=== PATIENT | female | born 1985 | race Hispanic/Latino ===

== ENCOUNTER 2017-09-07 14:37 | Inpatient (IN) | payer BC, SELFPAY ==
[2017-09-07] MEDS ORDERED: Ziprasidone 20 MG VIAL ONE ×2 (14:52→16:50)
[2017-09-07] MEDS ORDERED: Sterile Water 10 ML ONE ×2 (14:52→16:50)
[2017-09-07 15:51] LABS: #Basophils 0.1 thou/uL (0.0-0.2); #Lymphocytes 1.6 thou/uL (1.20-3.40); #Monocytes 0.3 thou/uL (0.11-0.59); #Neutrophils 1.2 thou/uL (1.40-6.50); %Basophils 1.6 % (0.0-1.0); %Eosinophils 1.2 % (0.0-10.0); %Lymphocytes 49.7 % (21.0-51.0); %Monocytes 9.9 % (0.0-10.0); %Neutrophils 37.7 % (42.0-75.0); Hemoglobin 11.8 g/dL (12.0-16.0); Mean Corpuscular HGB CONC 31.3 g/dL (32.0-36.0); Mean Corpuscular Hemoglobin 25.3 pg (27.0-31.0); Mean Corpuscular Volume 80.9 fl (81.0-99.0); Platelet Count 213 thou/uL (130-400); RBC Distribution Width 13.8 % (11.5-14.5); Red Blood Cell (RBC) Count 4.66 mill/uL (4.20-5.40); White Blood Cell (WBC) Count 3.3 thou/uL (4.8-10.8)
[2017-09-07 16:14] LABS: ALT (SGPT) 13 U/L (8-55); AST (SGOT) 17 U/L (5-34); Albumin 4.6 g/dL (3.5-5.0); Alcohol Less than 10 mg/dL (Less than 10); Alkaline Phosphatase 56 U/L (40-150); Anion Gap 15 mmol/L (10-20); BUN (Urea Nitrogen) 13 mg/dL (7.0-18.7); Bilirubin, Total 0.3 mg/dL (0.2-1.2); CK (CPK) 171 U/L (29-168); Calc. Creatinine Clearance 0 mL/min (70-130); Calcium 9.1 mg/dL (7.8-10.44); Carbon Dioxide 19 mmol/L (22-29); Chloride 110 mmol/L (98-107); Estimated GFR-MDRD 82; Globulin 2.9 g/dL (2.4-3.5); Glucose 71 mg/dL (70-105); Potassium 3.3 mmol/L (3.5-5.1); Protein, Total 7.5 g/dL (6.0-8.3); Salicylate Less than 8.0 mg/dL (15.0-30.0); Sodium 141 mmol/L (136-145)
[2017-09-07 16:33] LABS: Bilirubin Negative (Negative); Blood, Urine Negative (Negative); Clarity CLEAR (Clear); Glucose, Urine (Dipstick) Negative (Negative); Leukocyte Negative (Negative); Nitrite Negative (Negative); Protein, Urine (Dipstick) Trace mg/dL (Neg-Trace); Urobilinogen 0.2 mg/dL (0.2-1.0)
[2017-09-07 16:37] LABS: Pregnancy Test - Urine (BHCG) Negative (Negative); Pregu Control Background? CLEAR/WHITE (CLR/WHITE); Pregu Control Bar Appear? YES (CONTROL BAR); Specific Gravity 1.043 (1.002-1.036); Specific Gravity, Urine 1.043 (1.002-1.036)
[2017-09-07 16:38] LABS: Medtox Reader # READER 1
[2017-09-07 16:39] LABS: Amphetamine Not Detected (NotDetected); Barbiturates Screen Detected (NotDetected); Benzodiazepine Screen Not Detected (NotDetected); Cocaine Metabolite Screen Not Detected (NotDetected); Medtox Control Line Valid? VALID (VALID); Methadone Not Detected (NotDetected); Methamphetamine Not Detected (NotDetected); Opiate Screen Not Detected (NotDetected); Oxycodone Screen Not Detected (NotDetected); Phencyclidine (PCP) Not Detected (NotDetected); THC/Cannabinoid Screen Not Detected (NotDetected); Tricyclic Screen Not Detected (NotDetected)
[2017-09-07] MEDS ORDERED: Lorazepam 2 MG/ML VIAL SLOW IVP PRN (17:13)
[2017-09-07] MEDS ORDERED: ACETYLCYSTEINE IVPB ONE ×4 (17:15)
[2017-09-07] MEDS ORDERED: WATER IVPB SCH ×2 (17:15)
[2017-09-07] MEDS ORDERED: DEXTROSE 5% IVPB SCH ×2 (17:15)
[2017-09-07] MEDS ORDERED: DEXTROSE 5% IVPB ONE ×4 (17:15)
[2017-09-07] MEDS ORDERED: ACETYLCYSTEINE IVPB SCH ×2 (17:15)
[2017-09-07] MEDS ORDERED: WATER IVPB ONE ×4 (17:15)
[2017-09-07] MEDS ORDERED: Morphine 4 MG/ML Carpuject SLOW IVP PRN (17:29)
[2017-09-07] MEDS ORDERED: Ondansetron HCl/PF 4 MG/2 ML Vial IVP PRN (17:43)
[2017-09-07] MEDS ORDERED: Bisacodyl 5 MG TAB PO PRN (17:43)
[2017-09-07] MEDS ORDERED: Guaifenesin DM 100-10/5 ML UDCUP PO PRN (17:43)
[2017-09-07] MEDS: Sodium Chloride 0.9% 1,000 ML IV SCH (18:49)
--- NOTE | 2017-09-07 19:29 | HP ---
DATE OF ADMISSION: 09/07/2017 CHIEF COMPLAINT: Altered mental status. HISTORY OF PRESENT ILLNESS: This is a 32-year-old young white female who was brought in by EMS as sh e was found wandering at a store with altered mental status and with possible drug abuse. The patien liz was brought to the ER and was questioned about her mental status. The patient was completely disor iented and she mentioned that she took Xanax and OxyContin, but denies any other drugs. On deeper qu estioning, she was saying she feels very horrible and wants to . She denies intentionally hurting herself. She denies any nausea or vomiting, diarrhea or constipation. She denies any other medical issues. According to the EMS, the patient was very uncooperative and had a slurring of her speech w hen they arrived. The patient was picked up from [facility]. While she was in the ER, she does report some depressive signs because of her saying that she wanted to . The patient was given Ativan for anxi ety and the patient was sleeping very comfortably. When I examined the patient, unable to get any hi story from her. Most of the history is obtained either from the ER physician or the nursing staff. The patient was noted to have elevated Tylenol level after the blood reports were drawn and it showed a Tylenol level of 45 and it was recommended to start her on Atasol-15 IV in 20-hour protocol. PAST MEDICAL HISTORY: None. PAST SURGICAL HISTORY: The patient had C-sections x4 in the past. PSYCHIATRIC HISTORY: The patient has a history of anxiety and depression. SOCIAL HISTORY: The patient denies drug use. Denies smoking. Denies any illicit drug use. Denies any alcohol. FAMILY HISTORY: Unable to obtain family history at this time. REVIEW OF SYSTEMS: Unable to obtain review of systems as the patient is completely disoriented with the effect of the medication. ALLERGIES: No known drug allergies. HOME MEDICATIONS: None. PHYSICAL EXAMINATION: VITAL SIGNS: Blood pressure 113/56, heart rate is 120, respiration rate of 18, saturation 98%. GENERAL: The patient is moderately built and moderately nourished. She does not appear to be any ac [place] distress. She is lying comfortably with the effect of medication. HEENT: Atraumatic, normocephalic. PERRLA. Extraocular movements were intact. Oral mucosa is pink and moist. CARDIOVASCULAR: S1, S2 normal. No murmurs, no rubs or gallops. The patient is tachycardic. LUNGS: Bilateral air entry was equal. No wheezing, no crackles. ABDOMEN: Soft, nontender, no guarding, no rebound tenderness. Bowel sounds normal. MUSCULOSKELETAL: No calf tenderness. No pedal edema. No joint tenderness. No joint swelling. SKIN: No cyanosis, no erythema, no rash, no pallor. NEUROLOGIC: Cranial nerve examination not done as the patient is sleeping comfortably and not able t o follow commands. LABORATORY DATA: 1. WBC 3.3, hemoglobin 11.8, hematocrit 37.7, platelets are 213. 2. Sodium 141, potassium 3.3, chloride 110, bicarbonate is 19, BUN 13, creatinine 0.8. 3. UA was negative for any urinary tract infection. Urine toxicology showed a urine barbiturates an d acetaminophen level was found to be 45. ASSESSMENT AND PLAN 1. Acute toxic encephalopathy. 2. Acute acetaminophen overdose. 3. Severe major depression. 4. Hypokalemia. PLAN: 1. The plan is to start the patient on Atasol-15 dosing. The patient will be started on initial madelin ding dose of 150 mg running over an hour, followed by 50 mg over 3 hours. After this, the patient wi ll be started on 16-hour dose of Atasol-15 at the rate of 6.35 mg/kg per hour, completing 400 mg tota lly. 2. The patient is closely monitored with repeat CMP in the morning. The baseline liver enzymes were normal. 3. The patient has mild hypokalemia. We will replace with potassium protocol. 4. The patient has a history of severe major depression. She needs 1-on-1 observation and will do a [facility] consult for possible placement as the patient is high risk for suicides. 5. We will put the patient on Ativan as needed for anxiety 0.5 mg q.6 hours and we also started on S eroquel later in the evening around 6:00 p.m. 25 mg. 6. DVT prophylaxis, Lovenox. I spent 70 minutes of this patient of the 60 minutes is the critical care time.
--- NOTE | 2017-09-07 20:20 | ER ---
DATE OF SERVICE: 09/07/2017 NOTE: Please note also on her initial registration her name was listed as Ce Dela Cruz with the same medical number. Please refer to the patient's electronic medical record for further details of her visit. In summary, the patient presents with altered mental status and agitation. She was reported by EMS t o have been found with agitation and altered mental status in a grocery store. She mentioned to them the possibility of drug use, though to me she only reports having taken her regular prescribed medic ations of Xanax and perhaps oxybutynin, though she is unable to elaborate. She denies having taking oxycodone. She was found to have an elevated Tylenol level. After her initial agitation, she did ca lm down and was cooperative with exam and blood draws. She was able to be removed from restraints. However, later during her stay, she again became agitated and removed her IV and ran from the room sc reaming throughout the emergency department. At that point, she was returned to her bed and given Ge odon to aid in calming her agitation. This worked quite well, she is resting quietly at this time. She remained hemodynamically stable throughout her ER stay. Initial mild tachycardia improved with I V fluids. Because of her elevated Tylenol level, she was placed on Mucomyst protocol. I attempted t o elucidate from her the amount and time of her Tylenol ingestion, which she is not cooperative in pr oviding this information. Because of this, not knowing what time her ingestion may have been, I will presume that she may have taken a toxic ingestion and will admit her to the ICU for further treatmen t. She was not in any respiratory distress while in the department and neurologic exam reveals no fo brianna findings. I do not suspect any traumatic injury, and none was reported by EMS or the patient. S he was in stable condition with a guarded prognosis at the time of admission. She did report to me d uring our initial conversation that "I feel like I want to ." Because of this, she will likely re quire a Behavioral Health consult once she is medically cleared.
[2017-09-07] MEDS: Famotidine/PF 20 mg/2ml Vial SLOW IVP SCH (22:02)
[2017-09-08 04:30] LABS: Band 5 % (5-11); Hemoglobin 10.2 g/dL (12.0-16.0); Lymphocytes 36 % (21-51); MDiff Complete? YES; Mean Corpuscular HGB CONC 32.9 g/dL (32.0-36.0); Mean Corpuscular Hemoglobin 26.7 pg (27.0-31.0); Mean Platelet Volume 8.8 fL (7.4-10.4); Monocytes 7 % (0-10); Neutrophil 52 % (42-75); PLT Morphology Comment Appears Adequate; Platelet Count 203 thou/uL (130-400); RBC Distribution Width 13.8 % (11.5-14.5); Red Blood Cell (RBC) Count 3.82 mill/uL (4.20-5.40); White Blood Cell (WBC) Count 7.3 thou/uL (4.8-10.8)
[2017-09-08 04:36] LABS: ALT (SGPT) 11 U/L (8-55); AST (SGOT) 23 U/L (5-34); Albumin 4.1 g/dL (3.5-5.0); Alkaline Phosphatase 50 U/L (40-150); Anion Gap 13 mmol/L (10-20); BUN (Urea Nitrogen) 7 mg/dL (7.0-18.7); Bilirubin, Total 0.2 mg/dL (0.2-1.2); Calc. Creatinine Clearance 105 mL/min (70-130); Calcium 8.8 mg/dL (7.8-10.44); Carbon Dioxide 21 mmol/L (22-29); Chloride 112 mmol/L (98-107); Estimated GFR-MDRD Greater than 90; Globulin 2.4 g/dL (2.4-3.5); Glucose 67 mg/dL (70-105); Potassium 3.8 mmol/L (3.5-5.1); Protein, Total 6.5 g/dL (6.0-8.3); Sodium 142 mmol/L (136-145)
[2017-09-08] MEDS: Famotidine/PF 20 mg/2ml Vial SLOW IVP SCH ×2 (07:27→21:21)
[2017-09-08] MEDS: Sodium Chloride 0.9% 1,000 ML IV SCH (07:27)
[2017-09-08] MEDS: Enoxaparin Sodium 40 MG/0.4 ML SYRINGE SC SCH (07:28)
[2017-09-08 11:13] LABS: Acetaminophen Less than 6.0 mcg/mL (10.0-30.0)
--- NOTE | 2017-09-08 16:38 | DIS ---
DATE OF ADMISSION: 09/07/2017 DATE OF DISCHARGE: 09/08/2017 ADMITTING DIAGNOSIS: Acute toxic encephalopathy. DISCHARGE DIAGNOSIS: Acute toxic encephalopathy. SECONDARY DIAGNOSES: 1. Acetaminophen toxicity. 2. Severe major depression. 3. Hypokalemia. HISTORY OF PRESENT ILLNESS AND HOSPITAL COURSE: In brief, this is a 32-year-old female, who is a [employer] of [place], [place]. She happened to have an episode of confusion yesterday and went to the pharmacy and actually called for help, to be taken to the hospital. The patient had EMS picked up a t [facility] and the patient was brought to the ER. The patient was asked about suicidal ideation and at th at point when she was getting emotional and was very confused, it was decided that the patient could have had a suicidal overdose and on routine checking for Tylenol poisoning, the patient was noted to have a toxic levels of acetaminophen and was recommended to start on acetylcysteine loading dose. Th e patient was started on 150 mg loading dose and followed by 50 mg over 3 hours and then followed by 6.25 mg every hour for another 16 hours. The patient completed the treatment and she was seen, she w as alert and oriented, did not appear to be in any acute distress. She denied being suicidal at this time and she also denied being suicidal yesterday and she took an unknown quantity of Tylenol for re lieving her chronic migraine and tension headaches and she did mention to me she took almost 5 times, 10 tablets, total of 500 mg tablets to relieve her headache. She also took Excedrin, which also has acetaminophen, but there was no intentional overdose according to her and she does agree that she do es suffer from anxiety problem, but she was never diagnosed with severe depression and/or hospitalize d in the past. [facility] was consulted and a plan to give her an outpatient appointment. The patient is medically cleared. Her Tylenol level has come down to 0.6 and she is pretty stable at this time. Th e patient is cleared medically and is okay to be discharged as long as she get an outpatient psychiat kiko appointment. PHYSICAL EXAMINATION: VITAL SIGNS: On the day of discharge, blood pressures are 103/48, heart rate is 81, respiratory rate is 18, saturation 100%. GENERAL: The patient is moderately built and moderately nourished, does not appear in acute distress . CARDIOVASCULAR: S1, S2 normal. No murmurs, rubs or gallops. LUNGS: Bilateral air entry was equal. No wheezing, no crackles. ABDOMEN: Soft, nontender, no guarding, no rebound tenderness. Bowel sounds normal. MUSCULOSKELETAL: No calf tenderness. No pedal edema, no joint tenderness, no joint swelling. SKIN: No cyanosis, no erythema, no rash, no pallor. DISCHARGE MEDICATIONS: 1. Excedrin Extra Strength tablet as needed. 2. Butalbital, acetaminophen and caffeine tablet 1 tablet q.4 hours as needed. 3. Hydroxyzine 50 mg p.o. t.i.d. DISCHARGE INSTRUCTIONS: Continue activity as tolerated. Advised to follow up with [facility] appointment as outpatient with psychiatry within this week. Advised to follow up with the primary care physician and get treated for her migraine and tension hea daches. Advised to continue regular diet and patient is discharged home. I spent 35 minutes of this patient.
[2017-09-09] MEDS ORDERED: Ketorolac Tromethamine 30 MG/ML VIAL IVP PRN (00:16)
[2017-09-09] MEDS: Ibuprofen 600 MG TAB PO PRN ×2 (00:31→10:14)
[2017-09-09 05:30] LABS: ALT (SGPT) 14 U/L (8-55); AST (SGOT) 23 U/L (5-34); Albumin 3.9 g/dL (3.5-5.0); Alkaline Phosphatase 49 U/L (40-150); Anion Gap 10 mmol/L (10-20); BUN (Urea Nitrogen) 6 mg/dL (7.0-18.7); Bilirubin, Total 0.2 mg/dL (0.2-1.2); Calc. Creatinine Clearance 112 mL/min (70-130); Calcium 8.5 mg/dL (7.8-10.44); Carbon Dioxide 25 mmol/L (22-29); Chloride 108 mmol/L (98-107); Estimated GFR-MDRD Greater than 90; Globulin 2.3 g/dL (2.4-3.5); Glucose 91 mg/dL (70-105); Potassium 3.4 mmol/L (3.5-5.1); Protein, Total 6.2 g/dL (6.0-8.3); Sodium 140 mmol/L (136-145)
[2017-09-09 05:33] LABS: Band 1 % (5-11); Eosinophils 1 % (0-10); Hemoglobin 9.7 g/dL (12.0-16.0); Lymphocytes 57 % (21-51); MDiff Complete? YES; Mean Corpuscular HGB CONC 32.6 g/dL (32.0-36.0); Mean Corpuscular Hemoglobin 26.5 pg (27.0-31.0); Mean Corpuscular Volume 81.2 fl (81.0-99.0); Monocytes 6 % (0-10); Neutrophil 34 % (42-75); PLT Morphology Comment Appears Adequate; Platelet Count 188 thou/uL (130-400); RBC Distribution Width 13.9 % (11.5-14.5); Reactive Lymphocytes 1 % (0-10); Red Blood Cell (RBC) Count 3.67 mill/uL (4.20-5.40); White Blood Cell (WBC) Count 3.8 thou/uL (4.8-10.8)
[2017-09-09] MEDS: Enoxaparin Sodium 40 MG/0.4 ML SYRINGE SC SCH (08:17)
[2017-09-09 08:43] VITALS: BP 103/54; TEMP 98.7
[2017-09-09] MEDS: Famotidine/PF 20 mg/2ml Vial SLOW IVP SCH (12:28)
--- NOTE | 2017-09-09 19:39 | DIS ---
DATE OF ADMISSION: 09/07/2017 DATE OF DISCHARGE: 09/09/2017 Pleayaan refer to the discharge summary dictated by my colleague Dr. Medina on 09/08/2017 for full descri ption. HOSPITAL COURSE: The patient was admitted and discharged yesterday, but did not go as she was not cl eared by [facility]. The patient has been seen by [facility] today and has been cleared to be discharged home. She has been giv en information about outpatient psychiatric followups. I have discussed a migraine issue with her an d after discussion, it seems like she is overdosing herself on Tylenol as well as NSAIDs because of i ntractable migraines. I will refer her to Neurology as an outpatient for migraines. She is right no w instructed to take Imitrex with naproxen once or twice a day at the onset of the migraine and read the labels for any medications for correct dosing. I was seen and examined this patient prior to discharge. PHYSICAL EXAMINATION: Include: VITAL SIGNS: Temperature 98.7, pulse of 70, respirations 16, saturating 99% on room air, blood pressure 103/54. GENERAL: No acute distress. CHEST: Clear to auscultation. CARDIOVASCULAR: Rate and rhythm is regular. NEUROLOGIC: Nonfocal. She will follow up with Neurology and will establish care for a new primary care physician.
== END 2017-09-09 13:11 | disposition home or self-care (01) | DRG 917 ==
LOC: ERS 14:37 → EDBD 18:25 → CCU 18:25 → T4-A 09-08 09:45
PROVIDERS: ADMIT Family Medicine; ATTEND Family Medicine
DX: T39.1X1A Poisoning by 4-Aminophenol derivatives, accidental (unintentional), initial encounter (principal); G92 Toxic encephalopathy; T39.391A Poisoning by other nonsteroidal anti-inflammatory drugs [NSAID], accidental (unintentional), initial encounter; F32.9 Major depressive disorder, single episode, unspecified; E87.6 Hypokalemia; G43.919 Migraine, unspecified, intractable, without status migrainosus; F41.9 Anxiety disorder, unspecified; G44.209 Tension-type headache, unspecified, not intractable
CPT/HCPCS: 36415; 51701; 80053; 80306; 80307; 81003; 81025; 82550; 84443; 85007; 85025; 85027; 93005; 96361; 96372; 96374; A4216; A4353; J0132; J1650; J2060; J2270; J3486; J7070; S0028

== ENCOUNTER 2019-12-18 22:53 | Emergency (ER) | payer SELFPAY | END 2019-12-19 00:05 | disposition home or self-care (01) | LOC: ERS 22:53 | DX: M79.632 Pain in left forearm (principal); M79.89 Other specified soft tissue disorders | CPT/HCPCS: 99283 ==